=== PATIENT | male | born 1965 | race Caucasian/White ===

== ENCOUNTER 2017-05-30 12:46 | Inpatient (IN) | payer OTHER ==
[2017-05-30 13:32] VITALS: BMI 23.5
[2017-05-30] MEDS ORDERED: MAG HYDROX/AL HYDROX/SIMETH 30 ML UNIT-DOSE CUP PO PRN (14:39)
[2017-05-30] MEDS ORDERED: MENTHOL/PHENOL 1 EACH UD MM PRN (14:39)
[2017-05-30] MEDS ORDERED: METHADONE HCL 10 MG TABLET (FOR DETOX USE ONLY) PO ONE ×2 (14:39→23:00)
[2017-05-30] MEDS ORDERED: IBUPROFEN 400 MG TABLET (FP) PO PRN (14:39)
[2017-05-30] MEDS ORDERED: MAGNESIUM CITRATE 300 ML BOTTLE PO PRN (14:39)
[2017-05-30] MEDS ORDERED: ACETAMINOPHEN 325 MG TABLET (FP) PO PRN (14:39)
[2017-05-30] MEDS ORDERED: LOPERAMIDE HCL 2 MG CAPSULE PO PRN (14:39)
[2017-05-30] MEDS ORDERED: guaiFENesin/D-METHORPHAN HB 10 ML UNIT-DOSE CUPS PO PRN (14:39)
[2017-05-30] MEDS ORDERED: P-EPHED 60MG/TRIPROLIDI 2.5MG TABLET PO PRN (14:39)
[2017-05-30] MEDS ORDERED: MAGNESIUM HYDROX 2400MG/30ML ORAL SUSPENSION 30 ML CUP PO PRN (14:39)
[2017-05-30] MEDS ORDERED: diphenhydrAMINE HCL 50 MG CAPSULE PO PRN (14:39)
[2017-05-30] MEDS ORDERED: hydrOXYzine PAMOATE 50 MG CAPSULE (FP) PO PRN (14:39)
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
[2017-05-30] MEDS ORDERED: ALBUTEROL SO4 2.5/IPRATROPIUM 0.5 INH SOL 3 ML VIAL.NEB. NEB PRN (14:58)
[2017-05-30] MEDS ORDERED: ALBUTEROL SO4 2.5/IPRATROPIUM 0.5 INH SOL 3 ML VIAL.NEB. NEB ONE (14:58)
[2017-05-30] MEDS ORDERED: METHADONE HCL 10 MG TABLET (FOR DETOX USE ONLY) ONE (17:07)
[2017-05-30] MEDS: diazePAM 5 MG TABLET PO PRN ×2 (17:22→22:36)
[2017-05-30 17:34] LABS: URINE APPEARANCE CLEAR; URINE BILIRUBIN NEGATIVE (NEGATIVE); URINE BLOOD NEGATIVE (NEGATIVE); URINE COLOR LTYELLOW; URINE GLUCOSE (UA) NEGATIVE (NEGATIVE); URINE KETONE NEGATIVE (NEGATIVE); URINE LEUK ESTERASE NEGATIVE (NEGATIVE); URINE NITRITE NEGATIVE (NEGATIVE); URINE PROTEIN NEGATIVE (NEGATIVE); URINE UROBILINOGEN NEGATIVE mg/dL (0.2-1.0)
[2017-05-30] MEDS: THIAMINE HCL 100 MG TABLET (FP) PO SCH (22:35)
[2017-05-30] MEDS: ALBUTEROL SO4 6.7 GM HFA INHALER IH PRN (22:35)
[2017-05-30] MEDS: ZOLPIDEM TARTRATE 10 MG TABLET (PARK CARE ONLY) PO PRN (22:36)
[2017-05-31 09:58] LABS: MCH 30.9 pg (25.7-33.7); MCHC 33.1 g/dl (32.0-35.9); MEAN CELL VOLUME 93.2 fl (80-96); MEAN PLT VOLUME 8.6 fl (7.5-11.1); PLATELET COUNT 200 K/MM3 (134-434); WHITE BLOOD COUNT 7.5 K/mm3 (4.0-10.0)
[2017-05-31] MEDS ORDERED: METHADONE HCL 10 MG TABLET (FOR DETOX USE ONLY) PO ONE (10:00)
[2017-05-31] MEDS: PRENATAL VITAMINS W/ FOLIC ACID TABLET (FP) PO SCH (10:12)
--- NOTE | 2017-05-31 10:53 | PN ---
BHS COWS - Scale Resting Pulse: 0= [place] 80 or Below Sweatin=Flushed/Facial Moisture Restless Observation: 1= Difficult to Sit Still Pupil Size: 0= Normal to Room Light Bone or Joint Aches: 2= Severe Diffuse Aches Runny Nose/ Eye Tearin= Nasal Congestion GI Upset > 30mins: 0= None Tremor Observation of Outstretched Hands: 2= Slight Tremor Visible Yawning Observation: 2= >3x During Session Anxiety or Irritability: 2=Irritable/Anxious Goose Flesh Skin: 0=Smooth Skin COWS Score: 12 BHS Progress Note (SOAP) Subjective: sweats interrupted sleep agitation body aches Objective: 05/31/17 10:51 Vital Signs Temperature 97.9 F 05/31/17 10:07 Pulse Rate 64 05/31/17 10:07 Respiratory Rate 18 05/31/17 10:07 Blood Pressure 139/81 05/31/17 10:07 O2 Sat by Pulse Oximetry (%) Laboratory Tests 05/30/17 05/31/17 17:00 06:00 WBC 7.5 RBC 4.23 Hgb 13.1 Hct 39.4 MCV 93.2 MCH 30.9 MCHC 33.1 RDW 15.0 Plt Count 200 MPV 8.6 Urine Color Ltyellow Urine Appearance Clear Urine pH 7.0 Ur Specific [place] 1.015 Urine Protein Negative Urine Glucose (UA) Negative Urine Ketones Negative Urine Blood Negative Urine Nitrite Negative Urine Bilirubin Negative Urine Urobilinogen Negative Ur Leukocyte Esterase Negative labs pending awake/alert ambulating no acute distress Assessment: 05/31/17 10:54 withdrawal sx Plan: continue detox increase fluids labs pending
[2017-05-31 10:56] LABS: ALBUMIN 4.2 g/dl (3.4-5.0); ALK PHOS 71 U/L (45-117); ANION GAP 8 (8-16); BILIRUBIN,TOTAL 0.9 mg/dL (0.2-1.0); CALCIUM 9.3 mg/dL (8.5-10.1); CO2 29 mmol/L (21-32); GLUCOSE,RANDOM 98 mg/dL (74-106); SGOT/AST 20 U/L (15-37); SGPT/ALT 29 U/L (12-78); TOT PROT 7.5 g/dl (6.4-8.2)
--- NOTE | 2017-05-31 11:44 | PN ---
S COWS - Scale Resting Pulse: 0= [place] 80 or Below Sweatin= Chills/Flushing Restless Observation: 1= Difficult to Sit Still Pupil Size: 1= Pupils >than Normal Bone or Joint Aches: 1= Mild Discomfort Runny Nose/ Eye Tearin= Nasal Congestion GI Upset > 30mins: 2= Nausea/Diarrhea Tremor Observation of Outstretched Hands: 2= Slight Tremor Visible Yawning Observation: 1= 1-2x During Session Anxiety or Irritability: 2=Irritable/Anxious Goose Flesh Skin: 3=Piloerection COWS Score: 15 BHS Progress Note (SOAP) Subjective: nausea, sweats, interrupted sleep, anxiety, tremors Objective: 05/31/17 11:43 Vital Signs - 24 hr 05/30/17 05/30/17 05/31/17 13:29 21:59 00:30 Temperature 97.1 F L 99.3 F Pulse Rate 59 L 72 Respiratory 20 19 18 Rate Blood Pressure 140/82 149/93 05/31/17 05/31/17 05/31/17 03:30 06:45 10:07 Temperature 97.4 F L 97.9 F Pulse Rate 63 64 Respiratory 18 16 18 Rate Blood Pressure 113/67 139/81 Laboratory Tests 05/30/17 05/31/17 05/31/17 17:00 06:00 06:00 WBC 7.5 RBC 4.23 Hgb 13.1 Hct 39.4 MCV 93.2 MCH 30.9 MCHC 33.1 RDW 15.0 Plt Count 200 MPV 8.6 Sodium 141 Potassium 3.9 Chloride 104 Carbon Dioxide 29 Anion Gap 8 BUN 11 D Creatinine 1.0 Creat Clearance w eGFR > 60 Random Glucose 98 D Calcium 9.3 Total Bilirubin 0.9 D AST 20 ALT 29 Alkaline Phosphatase 71 Total Protein 7.5 Albumin 4.2 Urine Color Ltyellow Urine Appearance Clear Urine pH 7.0 Ur Specific [place] 1.015 Urine Protein Negative Urine Glucose (UA) Negative Urine Ketones Negative Urine Blood Negative Urine Nitrite Negative Urine Bilirubin Negative Urine Urobilinogen Negative Ur Leukocyte Esterase Negative RPR Titer 05/31/17 06:00 WBC RBC Hgb Hct MCV MCH MCHC RDW Plt Count MPV Sodium Potassium Chloride Carbon Dioxide Anion Gap BUN Creatinine Creat Clearance w eGFR Random Glucose Calcium Total Bilirubin AST ALT Alkaline Phosphatase Total Protein Albumin Urine Color Urine Appearance Urine pH Ur Specific [place] Urine Protein Urine Glucose (UA) Urine Ketones Urine Blood Urine Nitrite Urine Bilirubin Urine Urobilinogen Ur Leukocyte Esterase RPR Titer Nonreactive Assessment: 05/31/17 11:44 withdrawal sx Plan: cont detox
--- NOTE | 2017-05-31 12:31 | EKG ---
Test Reason : Blood Pressure : / mmHG Vent. Rate : 060 BPM Atrial Rate : 060 BPM P-R Int : 148 ms QRS Dur : 094 ms QT Int : 386 ms P-R-T Axes : 079 083 052 degrees QTc Int : 386 ms NORMAL SINUS RHYTHM POSSIBLE LEFT ATRIAL ENLARGEMENT BORDERLINE ECG NO PREVIOUS ECGS AVAILABLE Confirmed by MICHAEL TELLO, EMMA ([id number]) on 05/31/2017 12:30:59 PM Referred By: Juan Francisco Casper Confirmed By:EMMA RODRIGUEZ MD
[2017-05-31] MEDS: ALBUTEROL SO4 6.7 GM HFA INHALER IH PRN (20:30)
[2017-05-31] MEDS: THIAMINE HCL 100 MG TABLET (FP) PO SCH (22:31)
[2017-05-31] MEDS: diazePAM 5 MG TABLET PO PRN (22:31)
[2017-05-31] MEDS: ZOLPIDEM TARTRATE 10 MG TABLET (PARK CARE ONLY) PO PRN (22:31)
--- NOTE | 2017-06-01 09:49 | PN ---
BHS Progress Note (SOAP) Subjective: nausea, sweats, interrupted sleep, anxiety, tremors Objective: 06/01/17 09:48 Vital Signs - 24 hr 05/31/17 05/31/17 05/31/17 10:07 14:13 20:09 Temperature 97.9 F 98.2 F 97.1 F L Pulse Rate 64 70 74 Respiratory 18 20 18 Rate Blood Pressure 139/81 129/81 99/64 05/31/17 06/01/17 06/01/17 21:31 03:30 06:48 Temperature 98.2 F 97.9 F Pulse Rate 75 60 Respiratory 18 18 16 Rate Blood Pressure 122/79 111/65 Laboratory Tests 05/30/17 05/31/17 05/31/17 17:00 06:00 06:00 WBC 7.5 RBC 4.23 Hgb 13.1 Hct 39.4 MCV 93.2 MCH 30.9 MCHC 33.1 RDW 15.0 Plt Count 200 MPV 8.6 Sodium 141 Potassium 3.9 Chloride 104 Carbon Dioxide 29 Anion Gap 8 BUN 11 D Creatinine 1.0 Creat Clearance w eGFR > 60 Random Glucose 98 D Calcium 9.3 Total Bilirubin 0.9 D AST 20 ALT 29 Alkaline Phosphatase 71 Total Protein 7.5 Albumin 4.2 Urine Color Ltyellow Urine Appearance Clear Urine pH 7.0 Ur Specific [place] 1.015 Urine Protein Negative Urine Glucose (UA) Negative Urine Ketones Negative Urine Blood Negative Urine Nitrite Negative Urine Bilirubin Negative Urine Urobilinogen Negative Ur Leukocyte Esterase Negative RPR Titer 05/31/17 06:00 WBC RBC Hgb Hct MCV MCH MCHC RDW Plt Count MPV Sodium Potassium Chloride Carbon Dioxide Anion Gap BUN Creatinine Creat Clearance w eGFR Random Glucose Calcium Total Bilirubin AST ALT Alkaline Phosphatase Total Protein Albumin Urine Color Urine Appearance Urine pH Ur Specific [place] Urine Protein Urine Glucose (UA) Urine Ketones Urine Blood Urine Nitrite Urine Bilirubin Urine Urobilinogen Ur Leukocyte Esterase RPR Titer Nonreactive Assessment: 06/01/17 09:49 [email or web address] sx Plan: cont detox
[2017-06-01] MEDS ORDERED: METHADONE HCL 5 MG TABLET (FOR DETOX USE ONLY) PO ONE (10:00)
[2017-06-01] MEDS: PRENATAL VITAMINS W/ FOLIC ACID TABLET (FP) PO SCH (10:06)
[2017-06-01] MEDS: diazePAM 5 MG TABLET PO PRN ×2 (10:07→22:15)
[2017-06-01] MEDS: ALBUTEROL SO4 6.7 GM HFA INHALER IH PRN (10:07)
[2017-06-01] MEDS: ZOLPIDEM TARTRATE 10 MG TABLET (PARK CARE ONLY) PO PRN (22:14)
[2017-06-01] MEDS: THIAMINE HCL 100 MG TABLET (FP) PO SCH (22:14)
[2017-06-02] MEDS ORDERED: METHADONE HCL 5 MG TABLET (FOR DETOX USE ONLY) PO ONE (10:00)
[2017-06-02] MEDS: diazePAM 5 MG TABLET PO PRN (10:13)
[2017-06-02] MEDS: PRENATAL VITAMINS W/ FOLIC ACID TABLET (FP) PO SCH (10:14)
[2017-06-02] MEDS: ALBUTEROL SO4 6.7 GM HFA INHALER IH PRN ×2 (10:17→22:10)
--- NOTE | 2017-06-02 12:02 | PN ---
BHS Progress Note (SOAP) Subjective: interrupted sleep, abdominal cramps Objective: 06/02/17 12:02 Vital Signs - 8 hr 06/02/17 06/02/17 06:46 10:00 Temperature 96.6 F L 97.9 F Pulse Rate 69 76 Respiratory 18 18 Rate Blood Pressure 134/79 137/85 Laboratory Last Values WBC 7.5 K/mm3 (4.0-10.0) 05/31/17 06:00 RBC 4.23 M/mm3 (4.00-5.60) 05/31/17 06:00 Hgb 13.1 GM/dL (11.7-16.9) 05/31/17 06:00 Hct 39.4 % (35.4-49) 05/31/17 06:00 MCV 93.2 fl (80-96) 05/31/17 06:00 MCH 30.9 pg (25.7-33.7) 05/31/17 06:00 MCHC 33.1 g/dl (32.0-35.9) 05/31/17 06:00 RDW 15.0 % (11.9-15.9) 05/31/17 06:00 Plt Count 200 K/MM3 (134-434) 05/31/17 06:00 MPV 8.6 fl (7.5-11.1) 05/31/17 06:00 Sodium 141 mmol/L (136-145) 05/31/17 06:00 Potassium 3.9 mmol/L (3.5-5.1) 05/31/17 06:00 Chloride 104 mmol/L (98-107) 05/31/17 06:00 Carbon Dioxide 29 mmol/L (21-32) 05/31/17 06:00 Anion Gap 8 (8-16) 05/31/17 06:00 BUN 11 mg/dL (7-18) D 05/31/17 06:00 Creatinine 1.0 mg/dL (0.7-1.3) 05/31/17 06:00 Creat Clearance w eGFR > 60 (>60) 05/31/17 06:00 Random Glucose 98 mg/dL (74-106) D 05/31/17 06:00 Calcium 9.3 mg/dL (8.5-10.1) 05/31/17 06:00 Total Bilirubin 0.9 mg/dL (0.2-1.0) D 05/31/17 06:00 AST 20 U/L (15-37) 05/31/17 06:00 ALT 29 U/L (12-78) 05/31/17 06:00 Alkaline Phosphatase 71 U/L (45-117) 05/31/17 06:00 Total Protein 7.5 g/dl (6.4-8.2) 05/31/17 06:00 Albumin 4.2 g/dl (3.4-5.0) 05/31/17 06:00 Urine Color Ltyellow 05/30/17 17:00 Urine Appearance Clear 05/30/17 17:00 Urine pH 7.0 (5.0-8.0) 05/30/17 17:00 Ur Specific [place] 1.015 (1.005-1.025) 05/30/17 17:00 Urine Protein Negative (NEGATIVE) 05/30/17 17:00 Urine Glucose (UA) Negative (NEGATIVE) 05/30/17 17:00 Urine Ketones Negative (NEGATIVE) 05/30/17 17:00 Urine Blood Negative (NEGATIVE) 05/30/17 17:00 Urine Nitrite Negative (NEGATIVE) 05/30/17 17:00 Urine Bilirubin Negative (NEGATIVE) 05/30/17 17:00 Urine Urobilinogen Negative mg/dL (0.2-1.0) 05/30/17 17:00 Ur Leukocyte Esterase Negative (NEGATIVE) 05/30/17 17:00 RPR Titer Nonreactive (NONREACTIVE) 05/31/17 06:00 lab noted Assessment: 06/02/17 12:02 withdrawal sx Plan: continue detox
[2017-06-02] MEDS: ZOLPIDEM TARTRATE 10 MG TABLET (PARK CARE ONLY) PO PRN (22:08)
[2017-06-02] MEDS: THIAMINE HCL 100 MG TABLET (FP) PO SCH (22:09)
[2017-06-03] MEDS ORDERED: METHADONE HCL 10 MG TABLET (FOR DETOX USE ONLY) PO ONE (10:00)
[2017-06-03] MEDS: PRENATAL VITAMINS W/ FOLIC ACID TABLET (FP) PO SCH (10:07)
[2017-06-03] MEDS: ALBUTEROL SO4 6.7 GM HFA INHALER IH PRN ×2 (10:08→22:05)
--- NOTE | 2017-06-03 19:33 | PN ---
BHS Progress Note (SOAP) Subjective: Sweating,interrupted sleep,restless Objective: 06/03/17 19:32 Vital Signs - 8 hr 06/03/17 06/03/17 14:39 17:37 Temperature 96.9 F L 97.0 F L Pulse Rate 78 80 Respiratory 18 18 Rate Blood Pressure 139/71 128/83 Laboratory Last Values WBC 7.5 K/mm3 (4.0-10.0) 05/31/17 06:00 RBC 4.23 M/mm3 (4.00-5.60) 05/31/17 06:00 Hgb 13.1 GM/dL (11.7-16.9) 05/31/17 06:00 Hct 39.4 % (35.4-49) 05/31/17 06:00 MCV 93.2 fl (80-96) 05/31/17 06:00 MCH 30.9 pg (25.7-33.7) 05/31/17 06:00 MCHC 33.1 g/dl (32.0-35.9) 05/31/17 06:00 RDW 15.0 % (11.9-15.9) 05/31/17 06:00 Plt Count 200 K/MM3 (134-434) 05/31/17 06:00 MPV 8.6 fl (7.5-11.1) 05/31/17 06:00 Sodium 141 mmol/L (136-145) 05/31/17 06:00 Potassium 3.9 mmol/L (3.5-5.1) 05/31/17 06:00 Chloride 104 mmol/L (98-107) 05/31/17 06:00 Carbon Dioxide 29 mmol/L (21-32) 05/31/17 06:00 Anion Gap 8 (8-16) 05/31/17 06:00 BUN 11 mg/dL (7-18) D 05/31/17 06:00 Creatinine 1.0 mg/dL (0.7-1.3) 05/31/17 06:00 Creat Clearance w eGFR > 60 (>60) 05/31/17 06:00 Random Glucose 98 mg/dL (74-106) D 05/31/17 06:00 Calcium 9.3 mg/dL (8.5-10.1) 05/31/17 06:00 Total Bilirubin 0.9 mg/dL (0.2-1.0) D 05/31/17 06:00 AST 20 U/L (15-37) 05/31/17 06:00 ALT 29 U/L (12-78) 05/31/17 06:00 Alkaline Phosphatase 71 U/L (45-117) 05/31/17 06:00 Total Protein 7.5 g/dl (6.4-8.2) 05/31/17 06:00 Albumin 4.2 g/dl (3.4-5.0) 05/31/17 06:00 Urine Color Ltyellow 05/30/17 17:00 Urine Appearance Clear 05/30/17 17:00 Urine pH 7.0 (5.0-8.0) 05/30/17 17:00 Ur Specific [place] 1.015 (1.005-1.025) 05/30/17 17:00 Urine Protein Negative (NEGATIVE) 05/30/17 17:00 Urine Glucose (UA) Negative (NEGATIVE) 05/30/17 17:00 Urine Ketones Negative (NEGATIVE) 05/30/17 17:00 Urine Blood Negative (NEGATIVE) 05/30/17 17:00 Urine Nitrite Negative (NEGATIVE) 05/30/17 17:00 Urine Bilirubin Negative (NEGATIVE) 05/30/17 17:00 Urine Urobilinogen Negative mg/dL (0.2-1.0) 05/30/17 17:00 Ur Leukocyte Esterase Negative (NEGATIVE) 05/30/17 17:00 RPR Titer Nonreactive (NONREACTIVE) 05/31/17 06:00 labs noted Assessment: 06/03/17 19:33 Withdrawal sx Plan: Continue detox
[2017-06-03] MEDS: ZOLPIDEM TARTRATE 10 MG TABLET (PARK CARE ONLY) PO PRN (22:04)
[2017-06-03] MEDS: THIAMINE HCL 100 MG TABLET (FP) PO SCH (22:04)
[2017-06-04] MEDS ORDERED: METHADONE HCL 5 MG TABLET (FOR DETOX USE ONLY) PO ONE (06:00)
--- NOTE | 2017-06-04 08:41 | DS ---
[facility] Detox Discharge Summary Admission Date: 05/30/17 Discharge Date: 06/04/17 - History Present History: Cannabis Dependence, Opioid Dependence - Physical Exam Results Vital Signs: Vital Signs Temperature 97.9 F 06/04/17 06:00 Pulse Rate 64 06/04/17 06:00 Respiratory Rate 16 06/04/17 06:00 Blood Pressure 111/68 06/04/17 06:00 O2 Sat by Pulse Oximetry (%) - Treatment Hospital Course: Detox Protocol Followed, Detoxed Safely, Responded well, Discharged Condition Good, Rehab Referral Accepted - Medication Discharge Medications: Ambulatory Orders NK [No Known Home Medication] 06/05/16 - Diagnosis (1) Chronic back pain Current Visit: Yes Status: Chronic Qualifiers: Back pain location: back pain in unspecified location Back pain laterality: unspecified Qualified Code(s): M54.9 - Dorsalgia, unspecified ; G89.29 - Other chronic pain (2) H/O spinal fusion Current Visit: Yes Status: Chronic (3) Asthma Current Visit: Yes Status: Chronic Qualifiers: Asthma severity: mild intermittent Asthma complication type: uncomplicated Qualified Code(s): J45.20 - Mild intermittent asthma, uncomplicated (4) Cannabis dependence, uncomplicated Current Visit: Yes Status: Chronic (5) Opioid dependence with withdrawal Current Visit: Yes Status: Chronic (6) Use of cane as ambulatory aid Current Visit: Yes Status: Chronic - AMA Did Patient Leave Against Medical Advice: No
[2017-06-04] MEDS: PRENATAL VITAMINS W/ FOLIC ACID TABLET (FP) PO SCH (09:18)
[2017-06-04 09:53] VITALS: BP 143/85; PULSE 75; TEMP 98.4
== END 2017-06-04 09:54 | disposition home or self-care (01) | DRG 897 ==
LOC: YASAS 12:46 → Y6N 16:07
PROVIDERS: ADMIT Internal Medicine Addiction Medicine; ATTEND Internal Medicine Addiction Medicine
PROC: HZ2ZZZZ Detoxification Services for Substance Abuse Treatment (ICD-10-PCS; principal; 2017-05-30)
DX: F11.23 Opioid dependence with withdrawal (principal); F12.20 Cannabis dependence, uncomplicated; J45.20 Mild intermittent asthma, uncomplicated; M54.9 Dorsalgia, unspecified; G89.29 Other chronic pain; R26.2 Difficulty in walking, not elsewhere classified; Z99.89 Dependence on other enabling machines and devices; Z98.1 Arthrodesis status; Z87.891 Personal history of nicotine dependence
CPT/HCPCS: 36415; 80053; 81003; 85027; 86593; 93005; 93010; 94640